=== PATIENT | male | born 1945 | race Hispanic/Latino ===

== ENCOUNTER 2018-02-27 11:20 | Emergency (ER) | payer OTHER ==
[2018-02-27 12:41] LABS: Protime INR 1.18
[2018-02-27 12:46] LABS: Absolute Lymphocytes (CBC) 1.4 K/uL (0.7-4.9); Absolute Monocytes 0.5 K/uL (0.1-1.3); Absolute Neutrophil 2.6 K/uL (1.8-8.0); Basophils % 1.2 % (0-1.3); Eosinophils % 3.1 % (0-4.4); Hematocrit 41.3 % (39.6-49.0); MCH 34.6 pg (27.0-35.0); MCV 99.6 fL (80-100); MPV 7.4 fL (7.6-11.3); Monocytes % 11.2 % (3.3-12.3); RBC Red Blood Cell Count 4.14 M/uL (4.33-5.43)
--- NOTE | 2018-02-27 13:02 | RAD REPORT ---
EXAM DESCRIPTION: RAD - Chest Single View - 02/27/2018 12:48 pm CLINICAL HISTORY: MALAISE Chest pain. COMPARISON: Chest Single View dated 09/19/2016; CHEST SINGLE VIEW dated 12/08/2014; CHEST SINGLE VIEW d ated 05/27/2012; CHEST SINGLE VIEW dated 05/27/2012 FINDINGS: Portable technique limits examination quality. The lungs are grossly clear. The heart is upper limit of normal in size. No displaced fractures. IMPRESSION: No acute intrathoracic process suspected.
[2018-02-27 13:09] LABS: Albumin 3.1 g/dL (3.4-5.0); Bilirubin Direct 0.3 mg/dL (0-0.2); Bilirubin Total 0.7 mg/dL (0.2-1.0); Potassium 3.8 mmol/L (3.5-5.1); Protein, Total 7.2 g/dL (6.4-8.2)
--- NOTE | 2018-02-27 14:20 | RAD REPORT ---
EXAM DESCRIPTION: CT - Head Brain Wo Cont - 02/27/2018 2:13 pm CLINICAL HISTORY: CONFUSED Drowsiness COMPARISON: No comparisons TECHNIQUE: All CT scans are performed using dose optimization technique as appropriate and may inclu de automated exposure control or mA/KV adjustment according to patient size. FINDINGS: No intracranial hemorrhage, hydrocephalus or extra-axial fluid collection.Mild generalized brain atrophy is present with mild periventricular and deep white matter chronic microvascular ische jes changes.No areas of brain edema or evidence of midline shift. The paranasal sinuses and mastoids are clear. The calvarium is intact. IMPRESSION: No acute intracranial abnormality.
[2018-02-27 14:36] LABS: Urine Blood NEGATIVE (NEG); Urine Glucose NEGATIVE (NEG); Urine Protein TRACE (NEG)
[2018-02-27 14:52] LABS: Urine Bacteria <20 /HPF (NONE SEEN); Urine Culture Reflex Order NOT NEEDED; Urine RBC <5 /HPF (NONE SEEN)
--- NOTE | 2018-02-27 15:27 | EDPHYS ---
Physician Documentation [facility] Name: Sajan Pettit Age: 72 yrs Sex: Male : 1945 Arrival Date: 02/27/2018 Time: 11:24 Bed 17 Private MD: ED Physician Constantino Mixon HPI: 02/27 16:43 This 72 yrs old Male presents to ER via EMS with complaints of Altered Mental gs Status. 16:43 The patient presents with confusion, decreased mental status. Onset: The gs symptoms/episode began/occurred 2 day(s) ago. Possible causes: ammonia was noted to be elevated, started on lactulose, sent for evaluation. Associated signs and symptoms: Pertinent negatives: combativeness, diaphoresis, shortness of breath. Current symptoms: In the emergency department the patient's symptoms have improved, at baseline per relative/friend. The patient has experienced similar episodes in the past, a few times. noted to have some speech difficulty yesterday has since resolved. Historical: - Allergies: 11:25 No Known Allergies; rb1 - Home Meds: 11:25 apixaban oral 5 mg oral 1 tab 2 times per day [Active]; bupropion HCl 150 mg Oral TbER rb1 1 tab 2 times per day [Active]; cholecalciferol (vitamin D3) 1,000 unit oral cap 2 caps daily [Active]; cyanocobalamin (vitamin B-12) 500 mcg oral tab 2 tab daily [Active]; Depakote ER 500 mg Oral Tb24 1 tab two times a day [Active]; docusate sodium 100 mg Oral cap 1 cap 2 times per day [Active]; famotidine 20 mg Oral tab 1 tab once daily [Active]; ferrous sulfate 325 mg (65 mg iron) Oral tab 325 mg twice a day [Active]; hydrocortisone 2.5 % Topical crea 2 times per day [Active]; lactulose 15 gram Oral soln once daily [Active]; lisinopril 5 mg Oral tab 1 tab once daily [Active]; magnesium oxide 400 mg Oral tab daily [Active]; medroxyprogesterone 10 mg Oral tab 1 tab once daily [Active]; multivitamin oral cap daily [Active]; [place] 5-325 mg Oral tab 1 tab every 12 hours [Active]; propranolol-hydrochlorothiazide oral 20 mg oral 1 tab daily [Active]; rivastigmine 13.3 mg/24 hour transdermal pt24 1 patch once daily [Active]; spironolactone 25 mg Oral tab 1 tab once daily [Active]; zinc lozenges 23 mg oral lozg every 6 hours [Active]; - PMHx: 11:25 Dementia; Hepatitis; Hypertension; rb1 - PSHx: 11:25 hip surgery; rb1 - Immunization history:: Adult Immunizations up to date. - Social history:: Smoking status: Patient uses tobacco products, smokes one pack cigarettes per day. - Ebola Screening: : Patient negative for fever greater than or equal to 101.5 degrees Fahrenheit, and additional compatible Ebola Virus Disease symptoms. ROS: 16:43 All other systems are negative. gs Exam: 16:43 Head/Face: Normocephalic, atraumatic. Eyes: Pupils equal round and reactive to light, gs extra-ocular motions intact. Lids and lashes normal. Conjunctiva and sclera are non-icteric and not injected. Cornea within normal limits. Periorbital areas with no swelling, redness, or edema. ENT: Nares patent. No nasal discharge, no septal abnormalities noted. Tympanic membranes are normal and external auditory canals are clear. Oropharynx with no redness, swelling, or masses, exudates, or evidence of obstruction, uvula midline. Mucous membranes moist. Neck: Trachea midline, no thyromegaly or masses palpated, and no cervical lymphadenopathy. Supple, full range of motion without nuchal rigidity, or vertebral point tenderness. No Meningismus. Chest/axilla: Normal chest wall appearance and motion. Nontender with no deformity. No lesions are appreciated. Cardiovascular: Regular rate and rhythm with a normal S1 and S2. No gallops, murmurs, or rubs. Normal PMI, no JVD. No pulse deficits. Respiratory: Lungs have equal breath sounds bilaterally, clear to auscultation and percussion. No rales, rhonchi or wheezes noted. No increased work of breathing, no retractions or nasal flaring. Abdomen/GI: Soft, non-tender, with normal bowel sounds. No distension or tympany. No guarding or rebound. No evidence of tenderness throughout. Back: No spinal tenderness. No costovertebral tenderness. Full range of motion. Skin: Warm, dry with normal turgor. Normal color with no rashes, no lesions, and no evidence of cellulitis. 16:43 Constitutional: The patient appears alert, awake. 16:43 Musculoskeletal/extremity: Circulation is intact in all extremities. Joints: the left hip displays tenderness. 16:43 Neuro: Orientation: to person, place, situation, Cranial nerves: CN II- XII are normal as tested, Motor: moves all fours, Sensation: no acute changes. 16:52 ECG was reviewed by the Attending Physician. Vital Signs: 11:26 BP 141 / 81; Pulse 66; Resp 17; Temp 98.3(TE); Pulse Ox 99% on R/A; Weight 75.75 kg; rb1 Height 6 ft. 0 in. (182.88 cm) (R); 12:26 BP 136 / 68; Pulse 46; Resp 18; Pulse Ox 99% on R/A; rb1 13:00 BP 155 / 65; Pulse 64; Resp 18; Pulse Ox 98% on R/A; dh3 13:50 BP 144 / 81; Pulse 62; Resp 15; Pulse Ox 97% on R/A; dh3 14:50 BP 159 / 67; Pulse 53; Resp 17; Pulse Ox 97% on R/A; rb1 15:30 BP 141 / 93; Pulse 65; Resp 17; Pulse Ox 98% on R/A; rb1 16:00 BP 114 / 99; Pulse 68; Resp 20; Pulse Ox 98% ; rb1 11:26 Body Mass Index 22.65 (75.75 kg, 182.88 cm) rb1 MDM: 11:57 Patient medically screened. 16:43 Differential Diagnosis: electrolyte abnormality, intracranial bleed, sepsis, hepatic gs encephalopathy. Data reviewed: vital signs, nurses notes. Response to treatment: the patient's symptoms have markedly improved after treatment, and as a result, I will discharge patient. ED course: pt fell off stretcher, tender both hips xrayed no fracture. 16:43 Physician consultation: Carlos Maria MD regarding patient's condition, work up results, gs and will see patient nh. 02/27 11:58 Order name: Urine Microscopic Only 02/27 11:58 Order name: Basic Metabolic Panel; Complete Time: 13:45 02/27 11:58 Order name: Blood Culture Adult (2) 02/27 11:58 Order name: CBC with Diff; Complete Time: 13:45 02/27 11:58 Order name: Lactate; Complete Time: 13:45 02/27 11:58 Order name: LFT's; Complete Time: 13:45 02/27 11:58 Order name: Lipase; Complete Time: 13:45 02/27 11:58 Order name: Procalcitonin; Complete Time: 15:59 02/27 11:58 Order name: Protime (+inr); Complete Time: 13:45 02/27 11:58 Order name: Troponin (emerg Dept Use Only); Complete Time: 13:45 02/27 11:58 Order name: Chest Single View XRAY; Complete Time: 13:45 02/27 11:58 Order name: AMMONIA; Complete Time: 13:45 02/27 11:59 Order name: Urine Microscopic Only; Complete Time: 15:59 EDWV 02/27 14:16 Order name: Urine Dipstick--Ancillary (enter results); Complete Time: 15:59 02/27 11:58 Order name: Accucheck; Complete Time: 14:12 02/27 11:58 Order name: Cardiac monitoring; Complete Time: 12:26 02/27 11:58 Order name: EKG - Nurse/Tech; Complete Time: 14:11 02/27 11:58 Order name: IV Saline Lock - Large Bore; Complete Time: 12:25 02/27 11:58 Order name: Labs collected and sent; Complete Time: 12:25 02/27 11:58 Order name: O2 Per Protocol; Complete Time: 12:26 02/27 11:58 Order name: O2 Sat Monitoring; Complete Time: 12:26 02/27 11:58 Order name: Urine Dipstick-Ancillary (obtain specimen); Complete Time: 14:11 02/27 13:46 Order name: CT Head Brain wo Cont; Complete Time: 14:28 02/27 14:21 Order name: Dietitian Consult EDWV 02/27 14:23 Order name: Protein Restricted EDWV 02/27 14:36 Order name: Pelvis XRAY; Complete Time: 15:59 02/27 14:42 Order name: EKG Electrocardiogram EDWV EC:52 Rate is 65 beats/min. Rhythm is regular. [place] interval is prolonged. QRS interval is gs normal. T waves are Normal. No ST changes noted. Clinical impression: Abnormal EKG without significant change. Interpreted by me. Administered Medications: No medications were administered Point of Care Testing: Blood Glucose: 12:50 Blood Glucose: 80 mg/dL; dh3 Ranges: Critical Glucose Levels:Adult <50 mg/dl or >400 mg/dl <40 mg/dl or >180 mg/dl Disposition: 02/27/18 15:27 Discharged to Home. Impression: Weakness. - Condition is Stable. - Discharge Instructions: Weakness. - Medication Reconciliation Form, Thank You Letter, Antibiotic Education, Prescription Opioid Use form. - Follow up: Private Physician; When: 2 - 3 days; Reason: Re-evaluation by your physician. Signatures: Dispatcher [employer] [facility] Delmi Vazquez RN RN rb1 Constantino Mixon MD MD Corrections: (The following items were deleted from the chart) 14:22 14:21 Renal ordered. [facility] 16:45 15:27 02/27/2018 15:27 Discharged to Home. Impression: Weakness. Condition is Stable. rb1 Forms are Medication Reconciliation Form, Thank You Letter, Antibiotic Education, Prescription Opioid Use. Follow up: Private Physician; When: 2 - 3 days; Reason: Re-evaluation by your physician.
--- NOTE | 2018-02-27 15:27 | ER ---
Nurse's Notes [facility] Name: Sajan Pettit Age: 72 yrs Sex: Male : 1945 Arrival Date: 02/27/2018 Time: 11:24 Bed 17 Private MD: Diagnosis: Weakness Presentation: 02/27 11:26 Presenting complaint: EMS states: pt from [facility], original call was for tw2 stroke like symptoms, saying he had fever yesterday too, today for us stroke scale is negative, equal foil operator strength, a\T\ox3 says he is dizzy and tired, vs stable, HX: hep c, Cirrhosis, htn. Transition of care: patient was not received from another setting of care. Onset of symptoms was February 27, 2018. Risk Assessment: Do you want to hurt yourself or someone else? Patient reports no desire to harm self or others. Initial Sepsis Screen: Does the patient have a suspected source of infection?. Care prior to arrival: None. 11:26 Method Of Arrival: EMS: [facility] tw2 11:26 Acuity: GUSTAVO 3 tw2 11:26 Initial Sepsis Screen: Does the patient meet any 2 criteria? No. Patient's initial rb1 sepsis screen is negative. Triage Assessment: 11:30 Pain: Complains of pain in hip Unable to use pain scale. Does not appear to understand rb1 pain scale. Historical: - Allergies: 11:25 No Known Allergies; rb1 - Home Meds: 11:25 apixaban oral 5 mg oral 1 tab 2 times per day [Active]; bupropion HCl 150 mg Oral TbER rb1 1 tab 2 times per day [Active]; cholecalciferol (vitamin D3) 1,000 unit oral cap 2 caps daily [Active]; cyanocobalamin (vitamin B-12) 500 mcg oral tab 2 tab daily [Active]; Depakote ER 500 mg Oral Tb24 1 tab two times a day [Active]; docusate sodium 100 mg Oral cap 1 cap 2 times per day [Active]; famotidine 20 mg Oral tab 1 tab once daily [Active]; ferrous sulfate 325 mg (65 mg iron) Oral tab 325 mg twice a day [Active]; hydrocortisone 2.5 % Topical crea 2 times per day [Active]; lactulose 15 gram Oral soln once daily [Active]; lisinopril 5 mg Oral tab 1 tab once daily [Active]; magnesium oxide 400 mg Oral tab daily [Active]; medroxyprogesterone 10 mg Oral tab 1 tab once daily [Active]; multivitamin oral cap daily [Active]; [place] 5-325 mg Oral tab 1 tab every 12 hours [Active]; propranolol-hydrochlorothiazide oral 20 mg oral 1 tab daily [Active]; rivastigmine 13.3 mg/24 hour transdermal pt24 1 patch once daily [Active]; spironolactone 25 mg Oral tab 1 tab once daily [Active]; zinc lozenges 23 mg oral lozg every 6 hours [Active]; - PMHx: 11:25 Dementia; Hepatitis; Hypertension; rb1 - PSHx: 11:25 hip surgery; rb1 - Immunization history:: Adult Immunizations up to date. - Social history:: Smoking status: Patient uses tobacco products, smokes one pack cigarettes per day. - Ebola Screening: : Patient negative for fever greater than or equal to 101.5 degrees Fahrenheit, and additional compatible Ebola Virus Disease symptoms. Screenin:26 Abuse screen: Denies threats or abuse. Nutritional screening: No deficits noted. rb1 Tuberculosis screening: No symptoms or risk factors identified. Fall Risk None identified. Assessment: 11:26 General: Appears in no apparent distress. comfortable, Behavior is calm, cooperative, rb1 Reports fever for yesterday. Neuro: Level of Consciousness is awake, alert, obeys commands, Oriented to person, place, situation. Cardiovascular: Capillary refill < 3 seconds is brisk in bilateral fingers. Respiratory: Airway is patent Respiratory effort is even, unlabored, Respiratory pattern is regular, symmetrical. Derm: Skin is dry, Skin is normal, Skin temperature is warm. 12:20 Reassessment: Patient appears in no apparent distress at this time. Patient and/or rb1 family updated on plan of care and expected duration. Pain level reassessed. Patient is alert, oriented x 3, equal unlabored respirations, skin warm/dry/pink. 13:19 Reassessment: Patient appears in no apparent distress at this time. No changes from rb1 previously documented assessment. 14:01 Reassessment: called into ER bed 17 by RAY Dinero, pt found to be sitting on iw floor, on buttocks, pt c/o pain to left hip, pt states he had pain to hip before he got here but now pain is worse, pt denies hitting head, no other injuries noted, pt was trying to get to his urinal on the counter, side rails were up. 15:00 Reassessment: Patient appears in no apparent distress at this time. Patient and/or rb1 family updated on plan of care and expected duration. Pain level reassessed. Patient is alert, oriented x 3, equal unlabored respirations, skin warm/dry/pink. 15:55 Reassessment: Called saroj Oliveira at [facility]. Information from the [facility] SBAR was given. All questions asked and answered. 16:00 Reassessment: Patient appears in no apparent distress at this time. No changes from [facility] previously documented assessment. sister is at bedside. 16:25 Reassessment: Called [facility] for an update on transportation back to the facility. I [facility] was told they were working on it. 16:40 Reassessment: [facility] arrived to transport pt. [facility] Vital Signs: 11:26 BP 141 / 81; Pulse 66; Resp 17; Temp 98.3(TE); Pulse Ox 99% on R/A; Weight 75.75 kg; rb1 Height 6 ft. 0 in. (182.88 cm) (R); 12:26 BP 136 / 68; Pulse 46; Resp 18; Pulse Ox 99% on R/A; rb1 13:00 BP 155 / 65; Pulse 64; Resp 18; Pulse Ox 98% on R/A; dh3 13:50 BP 144 / 81; Pulse 62; Resp 15; Pulse Ox 97% on R/A; dh3 14:50 BP 159 / 67; Pulse 53; Resp 17; Pulse Ox 97% on R/A; rb1 15:30 BP 141 / 93; Pulse 65; Resp 17; Pulse Ox 98% on R/A; rb1 16:00 BP 114 / 99; Pulse 68; Resp 20; Pulse Ox 98% ; rb1 11:26 Body Mass Index 22.65 (75.75 kg, 182.88 cm) [facility] ED Course: 11:24 Patient arrived in ED. bd 11:26 Patient has correct armband on for positive identification. Bed in low position. Call [facility] light in reach. Side rails up X2. night monitor on. Pulse ox on. NIBP on. 11:28 Triage completed. tw2 11:28 Arm band placed on. tw2 11:31 Constantino Mixon MD is Attending Physician. gs 11:47 Delmi Vazquez, RN is Primary Nurse. rb1 12:15 Initial lab(s) drawn, by ky, sent to lab. First set of blood cultures drawn by me. dh3 Inserted saline lock: 20 gauge in right antecubital area, using aseptic technique. Blood collected. 12:34 Second set of blood cultures drawn by me, by venipuncture 23G to left ac. dh3 12:44 X-ray completed. Portable x-ray completed in exam room. Patient tolerated procedure sw well. 12:44 Chest Single View XRAY In Process Unspecified. EDMS 12:51 EKG done, by tap and die maker technician. reviewed by Constantino Mixon MD. at1 14:05 Urine collected: urinal, ciro in color. dh3 14:13 CT Head Brain wo Cont In Process Unspecified. EDMS 15:30 X-ray completed. Portable x-ray completed in exam room. Patient tolerated procedure ml well. 15:31 Pelvis XRAY In Process Unspecified. EDMS 16:45 No provider procedures requiring assistance completed. IV discontinued, intact, rb1 bleeding controlled, No redness/swelling at site. Pressure dressing applied. Administered Medications: No medications were administered Point of Care Testing: Blood Glucose: 12:50 Blood Glucose: 80 mg/dL; dh3 Ranges: Outcome: 15:27 Discharge ordered by . gs 16:45 Patient left the ED. rb1 16:45 Discharged to [facility]. Report called to Ciro rb1 16:45 Condition: stable 16:45 Discharge instructions given to [facility], restoration officer, Instructed on discharge instructions, follow up and referral plans. Demonstrated understanding of instructions, follow-up care, Prescriptions given X none Signatures: Dispatcher [employer] EDMS Arlene Machuca Irene, Glenny Britt RN, Amanda, county director welfare EKG Tat1 Do Mart[place]nez Delmi Vazquez, RN RN rb1 Amy Watt RN RN tw2 [employer] Styles 3 Constantino Mixon MD MD
--- NOTE | 2018-02-27 15:54 | RAD REPORT ---
EXAM DESCRIPTION: RAD - Pelvis - 02/27/2018 3:31 pm CLINICAL HISTORY: BLUNT TRAUMA COMPARISON: Pelvis dated 09/18/2016 FINDINGS: Chronic deformity of the proximal left femur and left hip is again noted likely related to long-standing AVN. The right hip appears intact. An acute fracture is not seen. Vascular calcificati ons are present.
[2018-02-27 17:18] VITALS: TEMP 98.3
[2018-02-27 17:22] VITALS: O2SAT 98
[2018-02-27 17:23] VITALS: BP 114/99
--- NOTE | 2018-02-27 18:37 | EKG ---
Test Date: 2018-02-27 Test Time: 12:45:35 Cherry Sorter: EMIL MEASUREMENT RESULTS: Intervals: Rate: 65 NE: 206 QRSD: 90 QT: 440 QTc: 457 [place]: P: 71 NE: 206 QRS: -57 T: 68 INTERPRETIVE STATEMENTS: Sinus rhythm with marked sinus arrhythmia Left anterior fascicular block Abnormal ECG Compared to ECG 09/18/2016 22:05:40 Sinus bradycardia no longer present Electronically Signed On 02-27-18 18:36:19 CDT by Isaiah Greene
== END 2018-02-27 16:45 | disposition home or self-care (01) ==
LOC: ER 11:20
DX: R53.1 Weakness (principal); I10 Essential (primary) hypertension; F17.210 Nicotine dependence, cigarettes, uncomplicated; F03.90 Unspecified dementia, unspecified severity, without behavioral disturbance, psychotic disturbance, mood disturbance, and anxiety
CPT/HCPCS: 36415; 70450; 71045; 72170; 80048; 80076; 81003; 81015; 82140; 82962; 83605; 83690; 84145; 84484; 85025; 85610; 87040; 93005; 99285